=== PATIENT | female | born 1975 | race African-American/Black ===

== ENCOUNTER 2018-01-21 05:53 | Emergency (ER) | payer OTHER | END 2018-01-21 06:21 | disposition home or self-care (01) | LOC: EDH 05:53 | DX: T16.1XXA Foreign body in right ear, initial encounter (principal); X58.XXXA Exposure to other specified factors, initial encounter; Y93.89 Activity, other specified; Y92.89 Other specified places as the place of occurrence of the external cause; Y99.8 Other external cause status ==

== ENCOUNTER 2019-03-22 23:38 | Emergency (ER) | payer MEDICAID, OTHER ==
[2019-03-22] MEDS ORDERED: ONDANSETRON ODT 4 MG TAB ONE (23:57)
[2019-03-22] MEDS ORDERED: ACETAMINOPHEN ELIXIR 325 MG/10.15ML UDCUP ONE (23:57)
== END 2019-03-23 00:10 | disposition home or self-care (01) ==
LOC: EDH 23:38
DX: R51 Headache (principal); R11.0 Nausea; R68.83 Chills (without fever); Z88.8 Allergy status to other drugs, medicaments and biological substances